=== PATIENT | male | born 1945 | race Caucasian/White ===

== ENCOUNTER 2019-06-07 17:15 | Emergency (ER) | payer OTHER, MEDICARE ==
[2019-06-07] MEDS ORDERED: Sodium Chloride 0.9% 10 ML Syringe FLUSH PRN (17:17)
[2019-06-07] MEDS ORDERED: Sodium Chloride 0.9% 2.5 ML Syringe FLUSH PRN (17:17)
--- NOTE | 2019-06-07 17:18 | EDM.PDOC ---
ED HPI GENERAL MEDICAL PROBLEM - General Stated Complaint: DIALISIS COMPLICATIONS. LOW BLOOD PRESSURE Time Seen by Provider: 06/07/19 17:16 Source of Information: Reports: Patient, RN History Limitations: Reports: No Limitations - History of Present Illness INITIAL COMMENTS - FREE TEXT/NARRATIVE: History of present illness: Patient was in dialysis and was noted to have heart rate in the high 30s and low blood pressure. He finished his dialysis before being wheeled up to the emergency room. He has been having low blood pressure the past 2 days and was told to drink more Gatorade. It had increased from a systolic blood pressure from 88 to the 100s with increase fluids. He has not had any symptoms of chest pain, dizziness, lightheadedness but he has been sleeping more than normal. Patient has an appointment to [facility] in 2 days to clear clot in his fistula. Patient has also been told that he will need a pacemaker soon. Review of systems: As per history of present illness and below otherwise all systems reviewed and negative. Past medical history: As per history of present illness and as reviewed below otherwise noncontributory. Surgical history: As per history of present illness and as reviewed below otherwise noncontributory. Social history: No reported history of drug or alcohol abuse. Family history: As per history of present illness and as reviewed below otherwise noncontributory. Physical exam: General: Well developed, well nourished in NAD HEENT: Atraumatic, normocephalic, pupils reactive, negative for conjunctival pallor or scleral icterus, mucous membranes moist, throat clear, neck supple, nontender, trachea midline. Lungs: Clear to auscultation, breath sounds equal bilaterally, chest nontender. Heart: S1S2, regular, negative for clicks, rubs, or JVD. Abdomen: NABS, Soft, nondistended, nontender. Negative for masses or hepatosplenomegaly. Negative for costovertebral tenderness. Pelvis: Stable nontender. Genitourinary: Deferred. Rectal: Deferred. Extremities: Atraumatic, negative for cords or calf pain. Neurovascular unremarkable. Neuro: Awake, alert, oriented. Cranial nerves II through XII unremarkable. Cerebellum unremarkable. Motor and sensory unremarkable throughout. Exam nonfocal. Skin:warm and dry Diagnostics: EKG, chest x-ray, bedside glucose?110 CBC, chemistry Therapeutics: Atropine half milligram given ED Course: Stable, I offered transfer for admission however patient prefers to go home. He has an appointment [facility] in 2 days and [facility] Impression: Bradycardia, mild hypokalemia (status post dialysis or to arrival) Prescriptions: None Plan: Follow-up with primary care tomorrow Definitive disposition and diagnosis as appropriate pending reevaluation and review of above. - Related Data Allergies Allergy/AdvReac Type Severity Reaction Status Date / Time No Known Allergies Allergy Verified 06/07/19 17:19 Home Meds: Home Meds Acetaminophen 500 mg PO Q6HR 06/07/19 [History] Albuterol/Ipratropium [DuoNeb 3.0-0.5 MG/3 ML] 1 dose INH Q6HR 06/07/19 [History ] Allopurinol [Zyloprim] 300 mg PO DAILY 06/07/19 [History] Apixaban [Eliquis] 2.5 mg PO BID 06/07/19 [History] Aspirin 81 mg PO DAILY 06/07/19 [History] Bumetanide 2 mg PO TID 06/07/19 [History] Ca Carbonate/Vitamin D3/Vit K [Calcium + D Soft Chewable Tab] 2 tab PO BID 06/07 [History] Fish Oil/[place]-3 Fatty Acids [Fish Oil 1,000 MG] 2 cap PO BID 06/07/19 [History] Insulin Detemir [Levemir Flextouch] 40 units INJECT ACBREAKFAST 06/07/19 [ History] Levothyroxine 25 mcg PO DAILY 06/07/19 [History] Potassium Chloride 20 meq PO DAILY 06/07/19 [History] Tamsulosin HCl 0.4 cap PO DAILY 06/07/19 [History] acetaZOLAMIDE [Acetazolamide] 250 mg PO DAILY 06/07/19 [History] atorvaSTATin Calcium [Atorvastatin Calcium] 20 mg PO BEDTIME 06/07/19 [History] glipiZIDE [Glucotrol XL] 5 mg PO DAILY 06/07/19 [History] metOLazone [Metolazone] 5 mg PO DAILY 06/07/19 [History] ED ROS GENERAL - Review of Systems Review Of Systems: See Below ED EXAM, GENERAL - Physical Exam Exam: See Below Course - Vital Signs Last Recorded V/S: Last Vital Signs Temp 97.2 F 06/07/19 17:19 Pulse 47 L 06/07/19 17:19 Resp 20 06/07/19 17:19 BP 103/55 L 06/07/19 17:19 Pulse Ox 99 06/07/19 17:19 - Orders/Labs/Meds Orders: Active Orders 24 hr Category Date Time Status EKG Documentation Completion [RC] STAT Care 06/07/19 17:17 Active Sodium Chloride 0.9% [Saline Flush] Med 06/07/19 17:17 Active 10 ml FLUSH ASDIRECTED PRN Sodium Chloride 0.9% [Saline Flush] Med 06/07/19 17:17 Active 2.5 ml FLUSH ASDIRECTED PRN Saline Lock Insert [OM.PC] Stat Oth 06/07/19 17:17 Ordered Medication Orders Sodium Chloride (Saline Flush) 10 ml FLUSH ASDIRECTED PRN PRN Reason: Keep Vein Open Last Admin: 06/07/19 17:48 Dose: 10 ml Sodium Chloride (Saline Flush) 2.5 ml FLUSH ASDIRECTED PRN PRN Reason: Keep Vein Open Last Admin: 06/07/19 17:48 Dose: 2.5 ml Labs: Laboratory Tests 06/07/19 06/07/19 06/07/19 Range/Units 17:25 17:25 17:39 WBC 9.36 (4.0-11.0) K/uL RBC 3.65 L (4.50-5.90) M/uL Hgb 11.5 L (13.0-17.0) g/dL Hct 36.8 L (38.0-50.0) % MCV 100.8 H (80.0-98.0) fL MCH 31.5 (27.0-32.0) pg MCHC 31.3 (31.0-37.0) g/dL RDW Std Deviation 47.9 (28.0-62.0) fl RDW Coeff of Kalyani 13 (11.0-15.0) % Plt Count 188 (150-400) K/uL MPV 9.80 (7.40-12.00) fL Neut % (Auto) 78.6 (48.0-80.0) % Lymph % (Auto) 7.8 L (16.0-40.0) % [place] % (Auto) 10.4 (0.0-15.0) % Eos % (Auto) 3.0 (0.0-7.0) % Baso % (Auto) 0.2 (0.0-1.5) % Neut # (Auto) 7.4 H (1.4-5.7) K/uL Lymph # (Auto) 0.7 (0.6-2.4) K/uL [place] # (Auto) 1.0 H (0.0-0.8) K/uL Eos # (Auto) 0.3 (0.0-0.7) K/uL Baso # (Auto) 0.0 (0.0-0.1) K/uL Nucleated RBC % 0.0 /100WBC Nucleated RBCs # 0 K/uL Sodium 135 L (136-148) mmol/L Potassium 3.1 L (3.5-5.1) mmol/L Chloride 98 (98-107) mmol/L Carbon Dioxide 28.9 (21.0-32.0) mmol/L BUN 11 (7.0-18.0) mg/dL Creatinine 2.7 H (0.8-1.3) mg/dL Est Cr Clr Drug Dosing 28.33 mL/min Estimated GFR (MDRD) 23.3 ml/min Glucose 110 H (74-106) mg/dL POC Glucose 110 (60-110) mg/dL Calcium 8.1 L (8.5-10.1) mg/dL Total Bilirubin 0.4 (0.2-1.0) mg/dL AST 16 (15-37) IU/L ALT 10 L (14-63) IU/L Alkaline Phosphatase 92 (46-116) U/L Total Protein 6.7 (6.4-8.2) g/dL Albumin 3.2 L (3.4-5.0) g/dL Globulin 3.5 (2.6-4.0) g/dL Albumin/Globulin Ratio 0.9 (0.9-1.6) Meds: Medications Generic Name Dose Route Start Last Admin Trade Name Freq PRN Reason Stop Dose Admin Sodium Chloride 10 ml 06/07/19 17:17 06/07/19 17:48 Saline Flush FLUSH 10 ml ASDIRECTED PRN Administration Keep Vein Open Sodium Chloride 2.5 ml 06/07/19 17:17 06/07/19 17:48 Saline Flush FLUSH 2.5 ml ASDIRECTED PRN Administration Keep Vein Open Discontinued Medications Generic Name Dose Route Start Last Admin Trade Name Zack PRN Reason Stop Dose Admin Atropine Sulfate 0.5 mg 06/07/19 17:47 06/07/19 17:48 Atropine 0.1 Mg/Ml IVPUSH 06/07/19 17:48 0.5 mg ONETIME ONE Administration Departure - Departure Time of Disposition: 18:27 Disposition: Home, Self-Care 01 Condition: Good Clinical Impression: Bradycardia - Discharge Information *PRESCRIPTION DRUG MONITORING PROGRAM REVIEWED*: No *COPY OF PRESCRIPTION DRUG MONITORING REPORT IN PATIENT YINA: No Instructions: Bradycardia, Adult Referrals: PCP,Unknown [Primary Care Provider] - Forms: ED Department Discharge Additional Instructions: The following information is given to patients seen in the emergency department who are being discharged to home. This information is to outline your options for follow-up care. We provide all patients seen in our emergency department with a follow-up referral. The need for follow-up, as well as the timing and circumstances, are variable depending upon the specifics of your emergency department visit. If you don't have a primary care physician on staff, we will provide you with a referral. We always advise you to contact your personal physician following an emergency department visit to inform them of the circumstance of the visit and for follow-up with them and/or the need for any referrals to a consulting specialist. The emergency department will also refer you to a specialist when appropriate. This referral assures that you have the opportunity for follow-up care with a specialist. All of these measure are taken in an effort to provide you with optimal care, which includes your follow-up. Under all circumstances we always encourage you to contact your private physician who remains a resource for coordinating your care. When calling for follow-up care, please make the office aware that this follow-up is from your recent emergency room visit. If for any reason you are refused follow-up, please contact the [facility] at and asked to speak to the emergency department charge nurse. [facility] [address] [place] [id number] - My Orders Last 24 Hours: My Active Orders 06/07/19 17:17 EKG Documentation Completion [RC] STAT Sodium Chloride 0.9% [Saline Flush] 10 ml FLUSH ASDIRECTED PRN Sodium Chloride 0.9% [Saline Flush] 2.5 ml FLUSH ASDIRECTED PRN Saline Lock Insert [OM.PC] Stat - Assessment/Plan Last 24 Hours: My Active Orders 06/07/19 17:17 EKG Documentation Completion [RC] STAT Sodium Chloride 0.9% [Saline Flush] 10 ml FLUSH ASDIRECTED PRN Sodium Chloride 0.9% [Saline Flush] 2.5 ml FLUSH ASDIRECTED PRN Saline Lock Insert [OM.PC] Stat
[2019-06-07] MEDS ORDERED: LORazepam 0.5 MG Tab PO ONE (17:39)
[2019-06-07] MEDS ORDERED: Atropine 0.1 MG/ML 10 ML Syringe IVPUSH ONE (17:47)
--- NOTE | 2019-06-07 18:19 | CR ---
INDICATION: Chest pain, shortness of breath TECHNIQUE: Single View of the chest COMPARISON: None available FINDINGS: Evaluation is limited due to single portable technique. There is a right-sided central venous catheter with the tip projecting over the mid SVC. The heart is normal in size. There is mild prominence within the right hilum which may be due to a prominent vessel versus enlarged lymph nodes. The lungs are grossly clear. The left costophrenic angle is not visualized. The right costophrenic angle is sharp. IMPRESSION: 1. Somewhat limited exam due to portable technique and overlapping soft tissue. Mild prominence of the right hilum may represent vessels versus an enlarged lymph node. 2. Otherwise negative for acute cardiopulmonary process. Dictated by Claudia Oakes MD @ 06/07/2019 6:18:07 PM Dictated by: Claudia Oakes MD @ 06/07/2019 18:18:12 (Electronically Signed)
== END 2019-06-07 18:22 | disposition home or self-care (01) ==
LOC: MW.ED 17:15
DX: R00.1 Bradycardia, unspecified (principal); E87.6 Hypokalemia; I10 Essential (primary) hypertension; E11.40 Type 2 diabetes mellitus with diabetic neuropathy, unspecified; Z79.4 Long term (current) use of insulin; Z79.82 Long term (current) use of aspirin; Z79.899 Other long term (current) drug therapy; Z99.2 Dependence on renal dialysis
CPT/HCPCS: 36415; 71045; 80053; 82962; 85025; 93005; 96374; 99284; J0461

== ENCOUNTER 2019-09-12 06:34 | Day surgery (SDC) | payer OTHER, MEDICARE ==
[~2019-09-12 06:34] MED LIST: Lactated Ringers 1,000 ML IV SCH
[2019-09-12] MEDS ORDERED: fentaNYL 100 MCG/2 ML SDV ONE (07:23)
[2019-09-12] MEDS ORDERED: Lidocaine 2% 5 ML SDV ONE (07:23)
[2019-09-12] MEDS ORDERED: Midazolam 1 MG/ML 2 ML SDV ONE (07:23)
[2019-09-12] MEDS ORDERED: Propofol 200 MG/20 ML SDV ONE ×3 (07:24→08:06)
[2019-09-12] MEDS ORDERED: Lidocaine 1% 20 ML MDV ONE (07:28)
[2019-09-12] MEDS ORDERED: Bupivacaine 0.5% 10 ML SDV ONE (07:28)
--- NOTE | 2019-09-12 07:32 | PCM.PREANE ---
Preanesthetic Assessment - Anesthesia/Transfusion/Family Hx Anesthesia History: Prior Anesthesia Without Reaction Other Type of Anesthesia Reaction Comment: "hard to wake up" Transfusion History: No Prior Transfusion(s) - Physical Assessment NPO Status Date: 09/11/19 Height: 6 ft 3 in Weight: 74.389 kg ASA Class: 4 Airway Class: Mallampati = 2 Dentition: Reports: Edentulous ROM/Head Extension: Full Lungs: Clear to Auscultation, Normal Respiratory Effort Cardiovascular: Regular Rate - Allergies Allergies/Adverse Reactions: Allergies Allergy/AdvReac Type Severity Reaction Status Date / Time No Known Allergies Allergy Verified 09/07/19 07:54 - Blood Blood Available: No - Anesthesia Plan Pre-Op Medication Ordered: None - Acknowledgements Anesthesia Type Planned: General Anesthesia Pt an Appropriate Candidate for the Planned Anesthesia: Yes Alternatives and Risks of Anesthesia Discussed w Pt/Guardian: Yes Pt/Guardian Understands and Agrees with Anesthesia Plan: Yes Additional Comments: PMH: O2 dependant COPD, uses O2, 24 hr /day heart failure ? 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, [place] but does not wear his hearing aids Cardiovascular History: Reports: Afib, Heart Murmur, High Cholesterol, Hypertension, SOB on Exertion Other Cardiovascular History: CHF, murmur in the past, peripheral edema ( states she sumaya wraps his legs to help wih his edema), hx rheumatic fever Respiratory History: Reports: Sleep Apnea, SOB Other Respiratory History: uses CPAP, continuous 02, hx of agent orange exposure Gastrointestinal History: Reports: None Genitourinary History: Reports: BPH, Dialysis, Prostate Disorder, Renal Disease , Other (See Below) Other Genitourinary History: dialysis on tuesdays and saturdays Musculoskeletal History: Reports: Arthritis, Gout Other Musculoskeletal History: 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, uses electric w/c, can walk short distance Neurological History: Reports: Neuropathy, Diabetic, Neuropathy, Peripheral Psychiatric History: Reports: None Endocrine/Metabolic History: Reports: Diabetes, Type II, Hypothyroidism, Obesity /BMI 30+ Hematologic History: Reports: Iron Deficiency Immunologic History: Reports: None Oncologic (Cancer) History: Reports: Prostate Dermatologic History: Reports: Other (See Below) Other Dermatologic History: sores in genital area on occasion - Infectious Disease History Infectious Disease History: Reports: Chicken Pox - Past Surgical History Head Surgeries/Procedures: Reports: None HEENT Surgical History: Reports: Naso-Sinus Surgery Other HEENT Surgeries/Procedures: nasal polyp removal Cardiovascular Surgical History: Reports: None Respiratory Surgical History: Reports: None GI Surgical History: Reports: None Male Surgical History: Reports: Prostate Biopsy Endocrine Surgical History: Reports: None Neurological Surgical History: Reports: None Musculoskeletal Surgical History: Reports: None Oncologic Surgical History: Reports: None Dermatological Surgical History: Reports: None - SUBSTANCE USE Smoking Status *Q: Never Smoker Tobacco Use Within Last Twelve Months: No Recreational Drug Use History: No - HOME MEDS Home Medications: Home Meds Albuterol/Ipratropium [DuoNeb 3.0-0.5 MG/3 ML] 1 dose INH Q6HR PRN 06/07/19 [ History] Allopurinol [Zyloprim] 300 mg PO DAILY 06/07/19 [History] Apixaban [Eliquis] 2.5 mg PO BID 06/07/19 [History] Aspirin 81 mg PO DAILY 06/07/19 [History] Bumetanide 2 mg PO ASDIRECTED 06/07/19 [History] Ca Carbonate/Vitamin D3/Vit K [Calcium + D Soft Chewable Tab] 2 tab PO BID 06/07 [History] Insulin Detemir [Levemir Flextouch] 20 units INJECT ACBREAKFAST 06/07/19 [ History] Levothyroxine 25 mcg PO DAILY 06/07/19 [History] Potassium Chloride 20 meq PO DAILY 06/07/19 [History] Tamsulosin HCl 0.4 cap PO DAILY 06/07/19 [History] acetaZOLAMIDE [Acetazolamide] 250 mg PO BID 06/07/19 [History] atorvaSTATin Calcium [Atorvastatin Calcium] 10 mg PO BEDTIME 06/07/19 [History] metOLazone [Metolazone] 10 mg PO DAILY 06/07/19 [History] [place]-3 Acid Ethyl Esters [Lovaza] 1 gm PO DAILY 09/07/19 [History] - CURRENT (IN HOUSE) MEDS Current Meds: Current Medications Lactated Ringer's (Ringers, Lactated) 1,000 mls @ 125 mls/hr IV ASDIRECTED SARAVANAN
[2019-09-12] MEDS ORDERED: Lactated Ringers 1,000 ML IV SCH (08:45)
--- NOTE | 2019-09-12 08:48 | PCM.OPNOTE ---
- General Post-Op/Procedure Note Date of Surgery/Procedure: 09/12/19 Operative Procedure(s): Removal Isaak dialysis catheter Pre Op Diagnosis: End stage renal disease. Desire for dialysis catheter removal Post-Op Diagnosis: Same Anesthesia Technique: MAC (ASA IV) Primary Surgeon: Oli Shine Fluid Replacement, Intraop: 150 EBL in mLs: 2 Condition: Good Free Text/Narrative:: DICTATION [id number] CPT CODE 87976
--- NOTE | 2019-09-12 10:23 | PCM48HPAN ---
Post Anesthesia Note - EVALUATION WITHIN 48HRS OF ANESTHETIC Vital Signs in Normal Range: Yes Patient Participated in Evaluation: Yes Respiratory Function Stable: Yes Cardiovascular Function Stable: Yes Hydration Status Stable: Yes Pain Control Satisfactory: Yes Nausea and Vomiting Control Satisfactory: Yes Mental Status Recovered: Yes Vital Signs: Last Vital Signs Temp 97.3 F 09/12/19 08:53 Pulse 52 L 09/12/19 08:53 Resp 16 09/12/19 08:53 BP 94/55 L 09/12/19 08:53 Pulse Ox 96 09/12/19 08:53
--- NOTE | 2019-09-12 10:23 | PCM.POSTAN ---
POST ANESTHESIA ASSESSMENT - MENTAL STATUS Mental Status: Alert, Oriented - VITAL SIGNS Vital Signs: Last Vital Signs Temp 97.3 F 09/12/19 08:53 Pulse 52 L 09/12/19 08:53 Resp 16 09/12/19 08:53 BP 94/55 L 09/12/19 08:53 Pulse Ox 96 09/12/19 08:53 - RESPIRATORY Respiratory Status: Respiratory Rate WNL, Airway Patent, O2 Saturation Stable - CARDIOVASCULAR CV Status: Pulse Rate WNL, Blood Pressure Stable - GASTROINTESTINAL GI Status: No Symptoms - POST OP HYDRATION Hydration Status: Adequate & Stable
--- NOTE | 2019-09-12 15:09 | OR ---
SURGEON: Oli Shine M.D. DATE OF PROCEDURE: 09/12/2019 OPERATION PERFORMED: Removal of Isaak dialysis catheter. PRIMARY SURGEON: Oli Shine M.D. ANESTHESIA: Local MAC. ASA CLASSIFICATION: IV. PREOPERATIVE DIAGNOSIS: Chronic renal failure with functioning AV shunt, desire for dialysis catheter removal. POSTOPERATIVE DIAGNOSIS: Chronic renal failure with functioning AV shunt, desire for dialysis catheter removal. ESTIMATED BLOOD LOSS: 2 mL. INTRAOPERATIVE FLUID REPLACEMENT: 150 mL of crystalloid. DESCRIPTION OF PROCEDURE: The patient was taken to the operating room and placed on the operating table in the supine position. Time-out was called for appropriate identification of the patient and procedure. Monitored anesthesia care was provided. The surgical site in the right anterior chest was prepped with ChloraPrep solution and sterile drapes were applied. The Dacron cuff was palpated and the skin surrounding that was infiltrated with 1% Xylocaine and 0.5% Marcaine solution. The skin incision was made and dissection carried directly down to the Dacron cuff. This was circumferentially dissected free. The catheter was clamped and then cut removing the distal portion. The proximal portion was then removed without difficulty. Pressure was held over the insertion site for full 2 minutes. When pressure was released, there was no bleeding. Small bleeding sites were electrocoagulated. The incision was closed in 2 layers approximating the subcutaneous tissue with 3-0 Vicryl and the skin with subcuticular 4-0 Monocryl. The incision was reinforced with Steri-Strips and sterile Tegaderm pad was placed as a dressing. Sponge, needle, and instrument counts were all correct. The patient tolerated the procedure well and was taken to recovery room in stable condition. VIANNEY / JAMEY /[id number]
== END 2019-09-12 10:20 | disposition home or self-care (01) ==
LOC: MW.SDS 06:34
PROVIDERS: ATTEND Surgery
DX: Z45.2 Encounter for adjustment and management of vascular access device (principal); I13.0 Hypertensive heart and chronic kidney disease with heart failure and stage 1 through stage 4 chronic kidney disease, or unspecified chronic kidney disease; I50.9 Heart failure, unspecified; N18.6 End stage renal disease; E11.22 Type 2 diabetes mellitus with diabetic chronic kidney disease; M10.9 Gout, unspecified; E03.9 Hypothyroidism, unspecified; Z79.899 Other long term (current) drug therapy; Z79.82 Long term (current) use of aspirin; Z79.01 Long term (current) use of anticoagulants; Z79.4 Long term (current) use of insulin
CPT/HCPCS: 36589; 88300; J2001; J2704; J3490; J7120; 82962; J2250; J3010